=== PATIENT | female | born 1965 | race Caucasian/White ===

== ENCOUNTER → 2024-12-12 | Outpatient (POV) | payer MEDICARE, MEDICAID ==
[~2024-12-12] VITALS: Ht 157.5 cm; Wt 92.7 kg
[~2024-12-12] MED LIST: ALEN70TA82 PO; ATOR1TAB19 PO; HUMI40KI2 SC; PANT40TA29 PO; TRAM50TA2 PO
[2024-12-12 13:24] VITALS: BP 156/83; O2SAT 99
== END ==
LOC: M IRPOV 13:21
PROVIDERS: ATTEND Registered Nurse School
DX: S32.018A Other fracture of first lumbar vertebra, initial encounter for closed fracture (principal); S32.028A Other fracture of second lumbar vertebra, initial encounter for closed fracture; S32.038 Other fracture of third lumbar vertebra; S22.088A Other fracture of T11-T12 vertebra, initial encounter for closed fracture; M81.0 Age-related osteoporosis without current pathological fracture; X58.XXXA Exposure to other specified factors, initial encounter; Y92.9 Unspecified place or not applicable; Y93.9 Activity, unspecified; Y99.9 Unspecified external cause status

== ENCOUNTER → 2025-01-16 | Outpatient (POV) | payer MEDICARE, MEDICAID | LOC: M IRPOV 11:15 | PROVIDERS: ATTEND Registered Nurse School | DX: S32.010G Wedge compression fracture of first lumbar vertebra, subsequent encounter for fracture with delayed healing (principal); F17.210 Nicotine dependence, cigarettes, uncomplicated; X58.XXXD Exposure to other specified factors, subsequent encounter; Z79.891 Long term (current) use of opiate analgesic; Z79.51 Long term (current) use of inhaled steroids; Z79.899 Other long term (current) drug therapy; Z80.1 Family history of malignant neoplasm of trachea, bronchus and lung; Z80.49 Family history of malignant neoplasm of other genital organs; Z83.49 Family history of other endocrine, nutritional and metabolic diseases; Z88.8 Allergy status to other drugs, medicaments and biological substances; Y92.9 Unspecified place or not applicable; Y93.9 Activity, unspecified; Y99.9 Unspecified external cause status ==